=== PATIENT | female | born 1945 | race Caucasian/White ===

== ENCOUNTER 2024-03-06 14:49 | Emergency (ER) | payer MEDICARE, SELFPAY ==
--- NOTE | ~2024-03-06 | CT_ITS ---
EXAMINATION: CT brain wo con DATE: 03/06/2024 16:02 INDICATION: Fall with head injury and dizziness TECHNIQUE: Computed tomography (CT) of the head was performed without intravenous contrast. Sagittal and coronal reconstructions were performed. The mA was adjusted according to patient size. Iterative reconstruction technique was employed. The dose-length product was 605.33 mGy-cm. COMPARISON: None FINDINGS: No fracture. No acute intracranial hemorrhage, acute infarction or abnormal extra axial fluid collect ion. Old lacunar infarcts at the anterior limb of the left internal capsule and in the more periphera l left parietal lobe white matter. There is mild scattered white matter hypoattenuation consistent wi th chronic small vessel ischemic disease. Symmetric prominence of the sulci consistent with mild to m oderate age-appropriate diffuse cerebral volume loss. Ventricles are normal and symmetric. No mass/ma ss effect. Changes of bilateral intraocular lens replacement. The orbits, paranasal sinuses and masto id air cells are normal. Intracranial calcified cerebral atherosclerosis is noted. IMPRESSION: 1. No fracture or acute intracranial process. 2. Small old lacunar infarcts at the anterior limb of the left internal capsule and in the left parie mark anthony lobe white matter. 2. Age-related changes including mild to moderate diffuse volume loss and mild scattered white matter hypoattenuation consistent with chronic small vessel ischemic disease. Reviewed, dictated and finalized at location A. IMPRESSION: 1. No fracture or acute intracranial process. 2. Small old lacunar infarcts at the anterior limb of the left internal capsule and in the left parietal lobe white matter. 2. Age-related changes including mild to moderate diffuse volume loss and mild scattered white matter hypoattenuation consistent with chronic small vessel isc hemic disease.
--- NOTE | ~2024-03-06 | XR_ITS ---
EXAMINATION: XR elbow LT min 3V DATE: 03/06/2024 18:04 INDICATION: Abrasion to the left elbow post fall TECHNIQUE: Anteroposterior, oblique and lateral views of the left elbow were obtained. COMPARISON: None. FINDINGS: Alignment is normal. Joint spaces are normal. No joint effusion. A couple tiny calcific densities pro jecting along the posterior margin of the lateral epicondyle evident only on the oblique projection. Soft tissues are otherwise unremarkable. IMPRESSION: 1. A couple tiny calcific densities along the posterior margin of the lateral epicondyle. Differentia l would include tiny foreign bodies, enthesopathic calcifications or tiny avulsion fracture fragments at the lateral humeral insertion of either the common extensor tendon wad or lateral collateral liga ment complex. Reviewed, dictated and finalized at location A. IMPRESSION: 1. A couple tiny calcific densities along the posterior margin of the lateral e picondyle. Differential would include tiny foreign bodies, enthesopathic calcif ications or tiny avulsion fracture fragments at the lateral humeral insertion o f either the common extensor tendon wad or lateral collateral ligament complex.
--- NOTE | ~2024-03-06 | CT_ITS ---
EXAMINATION: CT cervical spine wo con DATE: 03/06/2024 16:02 INDICATION: Fall with head injury TECHNIQUE: Computed tomography (CT) of the cervical spine was performed without intravenous contrast. Automated exposure control and iterative reconstruction technique were employed. The dose-length pro duct was 348.58 mGy-cm. COMPARISON: None FINDINGS: 6 degrees upper cervical dextrocurvature. Moderate osteoarthritis at the atlantoaxial articulation. T here is straightening of the normal cervical lordosis with 1 mm anterolisthesis C3 on C4 and C4-C5 an d 2 mm anterolisthesis C7 on T1. Vertebral body heights are normal. No fracture. Severe disc height l oss at C5-C6. Moderate to severe disc height loss at C3-C4. Moderate disc height loss at C4-C5 and C6 -C7 through T1-T2. Small amount of atherosclerotic calcification at the bilateral carotid bulbs. Cerv ical soft tissues are otherwise unremarkable. Visualized apices of lungs are clear. The following dis c levels are specifically discussed: C2-C3: There is minimal right uncovertebral joint osteoarthritis. There is mild right and moderate le ft facet joint osteoarthritis. There is no neural foraminal stenosis. There is no central canal steno sis. C3-C4: Small posterior disc osteophyte complex is present. There is severe bilateral uncovertebral jailyn int osteoarthritis. There is moderate right and severe left facet joint osteoarthritis. There is mild right and mild to moderate left neural foraminal stenosis. There is mild central canal stenosis. C4-C5: There is mild bilateral uncovertebral joint osteoarthritis. There is mild right and mild to mo derate left facet joint osteoarthritis. There is no neural foraminal stenosis. There is no central ca nal stenosis. C5-C6: Posterior disc osteophyte complex. There is severe bilateral uncovertebral joint osteoarthriti s. There is mild to moderate bilateral facet joint osteoarthritis. There is mild bilateral neural for aminal stenosis. There is mild central canal stenosis. C6-C7: Posterior disc osteophyte complex. There is moderate bilateral uncovertebral joint osteoarthri tis. There is mild to moderate bilateral facet joint osteoarthritis. There is mild bilateral neural f oraminal stenosis. There is mild central canal stenosis. C7-T1: Tiny T1 posterior endplate osteophyte. There is no uncovertebral joint osteoarthritis. There i s moderate right and severe left facet joint osteoarthritis. There is mild left neural foraminal sten osis. There is no central canal stenosis. IMPRESSION: 1. Moderate to severe cervical spondylosis. No acute osseous abnormality. Reviewed, dictated and finalized at location A.
[2024-03-06 15:17] VITALS: BP 151/70; PULSE 78; RESP 16; TEMP 36.5; O2SAT 95
--- NOTE | 2024-03-06 15:26 | ED.FALL ---
HPI - Fall General Chief Complaint: Fall Stated Complaint: fall Time Seen by Provider: 03/06/24 15:20 Focused HPI: Patient is an 79 y/o female, with PMH of CVA, who presents to the ED with c/o a fall. Patient reports she fell stepping off of a curb at the [employer] parking lot just prior to arrival. She fell backwards, hitting her head on the ground. Denied LOC. She is on ASA 81 mg daily, no other anticoagulation. C/o intermittent dizziness and mild nausea currently. Also sustained small skin tear to L elbow. Denies any other areas of pain. Denies vision changes. GENERAL: Well-appearing, well-nourished, and in no acute distress. HEAD: Normocephalic. Small contusion to posterior scalp, no bruising or bleeding. EYES: PERRL/EOMI CHEST: Clear to auscultation. ?No respiratory distress. HEART: Regular rate and rhythm.? NEURO: ?Alert and oriented x3. Patient screened in triage and initial orders placed.? ?Additional care and disposition to be based upon?diagnostic testing and treatment. Source: patient Mode of arrival: ambulatory Limitations: no limitations Related Data Allergies Allergy/AdvReac Type Severity Reaction Status Date / Time NSAIDS (Non-Steroidal AdvReac Unknown Verified 03/06/24 14:50 Anti-Inflamma Course Vital Signs Vital signs: Vital Signs Temperature 97.7 F 03/06/24 15:17 Pulse Rate 78 03/06/24 15:17 Respiratory Rate 16 03/06/24 15:17 Blood Pressure 151/70 H 03/06/24 15:17 Pulse Oximetry 95 03/06/24 15:17 Oxygen Delivery Room Air 03/06/24 15:17 Temperature 97.7 F 03/06/24 15:17 Pulse Rate 78 03/06/24 19:40 Respiratory Rate 20 03/06/24 19:40 Blood Pressure 132/84 03/06/24 19:40 Pulse Oximetry 96 03/06/24 19:40 Oxygen Delivery Room Air 03/06/24 15:17 MDM - Fall MDM Narrative Medical decision making narrative: MSE by WINTER in triage. Discharge Plan Discharge Clinical Impression: CHI (closed head injury), Elbow pain Patient Disposition: Home, Self-Care Condition: Stable Instructions: Antibiotic Form, Head Injury (ED), Elbow Sprain (ED) Additional Instructions: Your imaging studies were very reassuring that he did not sustain any injury to her neck. The left elbow x-ray shows some chronic degenerative changes although the radiologist was concerned there could be a potential tiny avulsion fracture although less likely given your reassuring exam. Do not require any kind of splinting and you should take Tylenol and NSAIDs [id number] for symptomatic relief. We have provided you follow-up with an orthopedic surgeon to obtain a repeat image in 1 weeks time. Prescriptions: New acetaminophen [Tylenol Extra Strength] 500 mg tablet 1,000 mg PO Q6H PRN (Reason: pain) Qty: 30 0RF Follow-up/Referrals: Mateo Marsh MD [Physician] - 1 Week PHYSICIAN NOT ON STAFF,NONSTAFF [Primary Care Provider] - Time of Disposition: 19:35
[2024-03-06] MEDS: ONDANSETRON HCL ODT 4 MG TABLET PO (15:27)
[2024-03-06] MEDS: ACETAMINOPHEN 500 MG TABLET 1000 MG PO (18:03)
[2024-03-06] MEDS: MECLIZINE HCL 25 MG TABLET PO (18:05)
--- NOTE | 2024-03-06 19:29 | ED.FALL ---
HPI - Fall General Chief Complaint: Fall Stated Complaint: fall Time Seen by Provider: 03/06/24 15:20 Source: patient Mode of arrival: ambulatory History of Present Illness HPI Narrative: This is an 79-year-old female with no pertinent past medical history who presents to the emergency department after having a ground level mechanical fall. Patient states that she was finishing up her meal and tried to get up and go outside when she accidentally tripped over the curb. She landed backwards striking the back of her head. She did not lose consciousness and does not take any medications aside from a daily aspirin. No history of seizure disorder any blood thinners. She was otherwise in her normal state of health denies any nausea, vomiting, vision changes, headache, weakness, fatigue or any neurological complaints presently. Related Data Allergies Allergy/AdvReac Type Severity Reaction Status Date / Time NSAIDS (Non-Steroidal AdvReac Unknown Verified 03/06/24 14:50 Anti-Inflamma Review of Systems Review of Systems: As reviewed above in the HPI. Exam Narrative: GENERAL: [Well-appearing, well-nourished, and in no acute distress.] HEAD: [Normocephalic, atraumatic.] EYES: [PERRLA and EOMI.] ENT: Nares clear, no rhinorrhea or epistaxis. Mucous membranes moist. NECK: Supple. CHEST: [Clear to auscultation. No respiratory distress.] HEART: [Regular rate and rhythm]. No murmur heard. [Normal peripheral pulses.] ABDOMEN: [Soft, nondistended], [nontender], [No rigidity or guarding] EXTREMITIES: Normal range of motion. [No edema.] Some skin abrasion to the left lateral aspect of her elbow without any decreased range of motion. No step-offs deformities. Full claim processing specialist strength. SKIN: Warm, dry, no rash. NEURO: [No focal deficits]. Alert and oriented [x3.] Ambulatory, no weakness or sensory deficits. PSYCH: [Normal mood and affect.] Course Vital Signs Vital signs: Vital Signs Temperature 36.5 C 03/06/24 15:17 Pulse Rate 78 03/06/24 15:17 Respiratory Rate 16 03/06/24 15:17 Blood Pressure 151/70 H 03/06/24 15:17 Pulse Oximetry 95 03/06/24 15:17 Oxygen Delivery Room Air 03/06/24 15:17 Temperature 36.5 C 03/06/24 15:17 Pulse Rate 78 03/06/24 15:17 Respiratory Rate 16 03/06/24 15:17 Blood Pressure 151/70 H 03/06/24 15:17 Pulse Oximetry 95 03/06/24 15:17 Oxygen Delivery Room Air 03/06/24 15:17 MDM - Fall MDM Narrative Medical decision making narrative: This is an 79-year-old female with no pertinent medical history who presents after a ground level mechanical fall. She did not lose consciousness but did strike her head. She does take a daily aspirin but no other blood thinner. CT head was obtained in addition to a left elbow x-ray given that she has a minor abrasion without any step-offs deformities or any weakness, decreased range of motion. Patient was provided Zofran, Tylenol, meclizine. Images were independently reviewed and CT scans were negative for any acute process. Elbow x-ray showed tiny calcific foreign bodies. Possibility of tiny avulsion fractures. Less likely given patient has full range of motion and no complaints of pain at this time. She will have to follow up on outpatient basis with Orthopedic surgery if she has persistence of. At this time she is stable for discharge home. Medical Records Attestation: I reviewed the patient's medical records. Lab Data Attestation: I reviewed the patient's lab results. Imaging Data Attestation: I personally reviewed and interpreted this imaging study as follows: Radiologist's impression: Impressions Head CT 03/06/24 16:17 IMPRESSION: 1. No fracture or acute intracranial process. 2. Small old lacunar infarcts at the anterior limb of the left internal capsule and in the left parietal lobe white matter. 2. Age-related changes including mild to moderate diffuse volume loss and mild scattered white matter hypoattenuat
[2024-03-06 19:40] VITALS: BP 132/84; PULSE 78; RESP 20; O2SAT 96
== END 2024-03-06 19:41 | disposition home or self-care (01) ==
PROVIDERS: Emergency Provider Student in an Organized Health Care Education/Training Program
DX: S09.90XA Unspecified injury of head, initial encounter (principal); S50.312A Abrasion of left elbow, initial encounter; Z79.82 Long term (current) use of aspirin; M47.812 Spondylosis without myelopathy or radiculopathy, cervical region; W10.1XXA Fall (on)(from) sidewalk curb, initial encounter
CPT/HCPCS: 70450; 72125; 73080; 99284; A4565; A9270